=== PATIENT | male | born 1945 | race American Indian/Alaskan Native ===

== ENCOUNTER 2016-07-02 11:39 | Emergency (ER) | payer MEDICARE ==
[2016-07-02 11:57] VITALS: BP 138/79
[2016-07-02 12:28] LABS: Bacteria,Urine 1+ /HPF (Negative); Bilirubin,Urine NEG (Negative); Blood,Urine LG (Negative); Ketones,Urine NEG (Negative); Leukocyte Esterase,Urine LG (Negative); Mucus,Urine 3+ /HPF; Nitrite,Urine POS (Negative); Urobilinogen,Urine < 2.0 mg/dL (<2.0); WBC,Urine > 182.0 /HPF (0.0-6.0)
[2016-07-02 12:37] LABS: Basophils % (Auto) 0.7 % (0.0-1.8); Eosinophils % (Auto) 2.2 % (0.0-4.3); Hemoglobin 15.5 gm/dl (11.8-15.2); Mean Corpuscular HGB Conc 35 % (32-34); Mean Corpuscular Hemoglobin 32 pg (28-32); Mean Corpuscular Volume 92 fl (84-94); Platelet Count 201 K/mm3 (140-440); Red Blood Count 4.88 M/mm3 (3.65-5.03); Red Cell Distribution Width 13.8 % (13.2-15.2); White Blood Count 10.9 K/mm3 (4.5-11.0)
[2016-07-02 12:51] LABS: Alanine Aminotransferase 27 units/L (7-56); Albumin 4.1 g/dL (3.9-5); Albumin/Globulin Ratio 1.1 %; Alkaline Phosphatase 107 units/L (35-129); Anion Gap 18 mmol/L; Bilirubin,Total 0.8 mg/dL (0.1-1.2); Blood Urea Nitrogen 13 mg/dL (9-20); Calcium 9.4 mg/dL (8.4-10.2); Carbon Dioxide 24 mmol/L (22-30); Chloride 99.4 mmol/L (98-107); Glucose 126 mg/dL (75-100); Lipase 27 units/L (13-60); Potassium 3.9 mmol/L (3.6-5.0); Sodium 137 mmol/L (137-145); Total Protein 7.9 g/dL (6.3-8.2)
[2016-07-02] MEDS ORDERED: LEVAQUIN PO ONE (13:09)
[2016-07-02] MEDS ORDERED: TORADOL IM ONE (14:04)
--- NOTE | 2016-07-02 14:05 | Emergency Department Report ---
HPI - General Chief Complaint: Abdominal Pain Time Seen by Provider: 07/02/16 13:34 - HPI HPI: The patient is a 70-year-old male who presents for evaluation of abdominal pain. The patient reports 2 days of suprapubic and left lower quadrant abdominal pain and left flank pain, currently 5 out of 10 in severity, sharp in quality, radiating from the groin into the left flank, worsened with urination, and associated with hematuria and dysuria. The patient denies fever, chills, night sweats, diarrhea, blood in the stool, dark tarry stool, genital discharge , testicular swelling or pain. ED Past Medical Hx - Past Medical History Previous Medical History?: Yes Hx Pulmonary Embolism: Yes Additional medical history: prostate cancer - Surgical History Past Surgical History?: No - Social History Smoking Status: Never Smoker Substance Use Type: None - Medications Home Medications: Home Medications Medication Instructions Recorded Confirmed Last Taken Type ALBUTEROL Inhaler [ProAir HFA 2 puff IH QID PRN #1 inhalation 08/15/13 Unknown Rx Inhaler] ALBUTEROL NEB's [Proventil 0.083% 2.5 mg IH TID PRN #30 neb 08/15/13 Unknown Rx NEBS] Nebulizer [Compact Compressor 1 each MC QDAY #1 kit 08/15/13 Unknown Rx Nebulizer] Tamsulosin [Flomax] 08/15/13 08/15/13 Unknown History HYDROcodone/APAP 7.5-325 [Omega 1 each PO Q6HR PRN #14 tablet 07/02/16 Unknown Rx 7.5/325] Levofloxacin [Levaquin] 750 mg PO QDAY #10 tablet 07/02/16 Unknown Rx Ondansetron [Zofran Odt] 4 mg PO Q8HR #14 tab.rapdis 07/02/16 Unknown Rx ED Review of Systems ROS: Stated complaint: LOWER ABD PAIN/DISCOMFORT Other details as noted in HPI Constitutional: denies: fever ENT: denies: throat or neck pain Respiratory: denies: cough, shortness of breath Cardiovascular: denies: chest pain Endocrine: denies unexplained weight loss or gain Gastrointestinal: reports abdominal pain, nausea Genitourinary: reports dysuria Musculoskeletal: denies: leg swelling Skin: denies: rash Neurological: denies: headache Hematological/Lymphatic: denies: easy bleeding or easy bruising Psych: denies sadness or hopelessness Physical Exam - Physical Exam Vital Signs: Vital Signs 07/02/16 07/02/16 11:52 12:55 Temperature 97.7 F Pulse Rate 70 Respiratory 20 16 Rate Blood Pressure 138/79 O2 Sat by Pulse 100 99 Oximetry Physical Exam: General: well-nourished, well-developed, no acute distress Head: Normocephalic, atraumatic Eyes: normal sclera ENT: Mucous membranes are pink and moist Neck: trachea midline, neck supple, No neck stiffness, no cervical adenopathy Respiratory: Breath sounds equal bilaterally, no wheezing, rales, or rhonchi Cardio: S1 and S2 present, no murmurs, rubs, gallops, capillary refill is brisk Abdomen: Normoactive bowel sounds, soft abdomen, LLQ and suprapubic tenderness to palpation presen,t no rigidity, no guarding or rebound tenderness Chest WALL/Back: No tenderness to palpation of the chest wall, left CVA tenderness with percussion present Musc: No pitting edema Skin: No rash Neuro: no facial drooping, normal speech Psych: Normal affect ED Course Vital Signs 07/02/16 07/02/16 11:52 12:55 Temperature 97.7 F Pulse Rate 70 Respiratory 20 16 Rate Blood Pressure 138/79 O2 Sat by Pulse 100 99 Oximetry ED Medical Decision Making - Lab Data Result diagrams: 07/02/16 12:16 07/02/16 12:16 - Medical Decision Making The patient was seen and examined by myself. The patient is placed on a rn cardiac rehab and continuous pulse ox. On initial evaluation, the patient was found to be in no distress. Evaluation orders are placed. The patient is given IM dose of Toradol for his pain. Lab results revealed elevated urine WBC of 131, with positive bacteria, consistent with acute urinary tract infection, and mildly elevated RBCs. Otherwise lab results were non-concerning including WBC, hemoglobin, hematocrit, electrolytes, renal function, LFTs, lipase, and urinalysis. The patient is given by mouth Levaquin for treatment of his urinary tract infection. As the patient presented with radiating flank pain and hematuria, findings are suggestive of ureterolithiasis. The patient declined CAT scan of the abdomen for evaluation of ureterolithiasis. The patient was reevaluated and reported that their symptoms were markedly improved. The patient is stable for discharge with outpatient follow-up. The patient is given follow-up and return instructions. The patient expressed understanding and agreed with the plan. The patient is discharged in stable condition. Critical care attestation.: If time is entered above; I have spent that time in minutes in the direct care of this critically ill patient, excluding procedure time. ED Disposition Clinical Impression: Acute UTI (urinary tract infection), Abdominal pain, acute, left lower quadrant , Acute left flank pain Disposition: DISCHARGED TO HOME OR SELFCARE Is pt being admited?: No Does the pt Need Aspirin: No Condition: Stable Instructions: Urinary Tract Infection in Men (ED), Flank Pain (ED), How to Strain Your Urine (ED), Kidney Stones (ED) Prescriptions: HYDROcodone/APAP 7.5-325 [Omega 7.5/325] 1 each PO Q6HR PRN #14 tablet PRN Reason: Pain Levofloxacin [Levaquin] 750 mg PO QDAY #10 tablet Ondansetron [Zofran Odt] 4 mg PO Q8HR #14 tab.[email or web address] Referrals: PRIMARY CARE, [Primary Care Provider] - 3-5 Days Time of Disposition: 14:05
== END 2016-07-02 14:54 | disposition home or self-care (01) ==
LOC: ED 11:39
DX: N39.0 Urinary tract infection, site not specified (principal); R10.32 Left lower quadrant pain; C61 Malignant neoplasm of prostate; I26.99 Other pulmonary embolism without acute cor pulmonale; Z88.8 Allergy status to other drugs, medicaments and biological substances
CPT/HCPCS: 36415; 80053; 81001; 83690; 85025; 96372; 99284; J1885